=== PATIENT | male | born 2000 | race Asian ===

== ENCOUNTER 2024-12-16 03:07 | Observation (INO) ==
[2024-12-16] MEDS: SODIUM CHLORIDE 0.9% 1,000 ML IV ONE ×2 (03:37→04:52)
[2024-12-16] MEDS: diphenhydrAMINE 50 MG/ML VIAL IV STA (03:39)
[2024-12-16] MEDS: FAMOTIDINE 20MG IV PUSH 20 MG/5 ML SYR IV STA (03:40)
[2024-12-16] MEDS: dexAMETHasone**PF** 10 MG/ML VIAL IV ONE (03:43)
[2024-12-16] MEDS: ONDANSETRON INJ 2 MG/ML 2 ML VIAL IV STA (03:44)
[2024-12-16 04:08] LABS: Hematocrit (blood only) 57.1 % (42.0-52.0); Hemoglobin 19.4 g/dl (14.0-18.0); Mean Corpuscular Hemoglobin 30.5 pg (25.0-34.0); Mean Corpuscular Volume 89.8 fL (80.0-100.0); Platelet Count 342 K/uL (130-400); RDW Standard Deviation 41.8 fL (36.4-46.3); Red Blood Count 6.36 M/uL (4.70-6.10); White Blood Count 22.71 K/ul (4.8-10.8)
[2024-12-16 04:23] LABS: Alanine Aminotransferase 32.0 U/L (7-52); Albumin Globulin Ratio 1.7 (0.9-2); Alkaline Phosphatase 49.0 U/L (34-104); Anion Gap 21.0 (3-11); Bilirubin,Total 0.4 mg/dl (0.2-1.0); Blood Urea Nitrogen 16.0 mg/dl (6-23); Calcium 9.0 mg/dl (8.6-10.3); Carbon Dioxide 17.0 mmol/L (21-32); Chloride 103.0 mmol/L (98-107); Creatinine Clr Calc Pharmacy 75.6 ml/min; Globulin 2.7 gm/dl (2.5-4.0); Glucose 228.0 mg/dl (70-99(Fasting)); Potassium 4.0 mmol/L (3.5-5.1); Sodium 141.0 mmol/L (136-145); Total Protein 7.3 gm/dl (6.0-8.3)
[2024-12-16 04:31] LABS: Immature Granulocytes # (auto) 0.22 K/uL (0.01-0.20); Immature Granulocytes % (auto) 1.0 %; RBC Morphology Unremarkable
[2024-12-16 04:36] LABS: Base Excess VBG -6.0 mEq/L; HCO3 VBG 21 mmol/L; Oxygen Saturation VBG < 60.0 %; PCO2 VBG 44 mmHg (38-50); PO2 VBG 25 mmHg; pH VBG 7.28 (7.36-7.41)
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
[2024-12-16 05:06] LABS: Creatine Kinase 151.0 U/L (30-223)
[2024-12-16 05:31] LABS: Appearance Urine Clear (Clear); Bacteria Urine Automated None Seen (None Seen); Epithelial Cell Urine Auto 0-2 /hpf (0-2); Glucose Urine UA Negative (Negative); RBC Urine Automated 0-2 /hpf (0-2); WBC Urine Automated 0-5 /hpf (0-5)
[2024-12-16 05:34] LABS: Amphetamines+Metham, Urine Neg (Neg); MDMA (Ecstacy), Urine Neg (Neg); Marijuana, Urine Neg (Neg)
[2024-12-16 05:41] LABS: Influenza A virus by PCR Negative (Neg); Influenza B virus by PCR Negative (Neg); SARS CoV2 RNA(COVID-19) Ceph NEGATIVE (Negative)
--- NOTE | 2024-12-16 05:43 | XRay Report ---
EXAM: XR chest 1V portable CLINICAL HISTORY: Altered Mental Status, elevated WBC. TECHNIQUE: An X-ray image of the chest is obtained in AP projection. COMPARISON: No prior studies are available for comparison. FINDINGS: Pulmonary Parenchyma: Lungs are clear bilaterally. No evidence of consolidation, collapse, or focal opacities. No pulmonary nodules are identified. No evidence of pleural effusion or pleural thickening. Heart and Mediastinum: Heart size and shape are normal. No mediastinal widening or masses. No hilar or mediastinal lymphadenopathy. Bony Thorax: Bony thorax appears intact without fractures or deformities. Soft Tissues: Soft tissues overlying the chest wall are unremarkable. IMPRESSION: No acute cardiopulmonary abnormalities are identified. Electronically signed by Armando Brambila 12-16-2024 05:43 AM
[2024-12-16] MEDS: LACTATED RINGER'S 1,000 ML IV SCH (06:29)
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
[2024-12-16] MEDS ORDERED: MELATONIN 3 MG TAB PO PRN (08:13)
[2024-12-16] MEDS ORDERED: diphenhydrAMINE 50 MG/ML VIAL IV PRN (08:13)
[2024-12-16] MEDS ORDERED: ONDANSETRON INJ 2 MG/ML 2 ML VIAL IV PRN (08:13)
[2024-12-16] MEDS ORDERED: ACETAMINOPHEN 325 MG TAB PO PRN (08:13)
[2024-12-16] MEDS ORDERED: POLYETHYLENE (MIRALAX) 17 GM PACK PO PRN (08:13)
[2024-12-16] MEDS ORDERED: ALUMINUM/MAGNESIUM SUSP 30 ML UDC PO PRN (08:13)
[2024-12-16 09:29] LABS: Hemoglobin A1C 5.3 % (4.5-5.6)
--- NOTE | 2024-12-16 13:44 | Hospitalist Progress Note ---
Date of Service December 16, 2024 Assessment & Plan (1) Renal insufficiency: Plan: Mild on admission. Continue IV fluids. Monitor urine output. Serial labs (2) Vomiting: Plan: Probably due to excessive alcohol intake. Now resolved. Symptomatic care (3) Allergic reaction: Plan: The patient thought he was having some type of allergic reaction on admission and received Benadryl. He is currently asymptomatic. Will observe (4) Alcohol intoxication: Plan: Alcohol level elevated on admission. Supportive care. Plan Hopeful discharge to home tomorrow, December 17 Admission and Anticipated Discharge Date Admission Date: December 16, 2024 Subjective Alert and oriented. Family is at the bedside. He states he feels much better than on admission. Alcohol level was elevated at the time of admission. Continue IV fluids for now. Hopefully he can be discharged tomorrow, December 17 Review of Systems 2 Review of Systems: Constitutionalno fever or chills ENTno blurred vision, no double vision, no epistaxis, no sore throat Respiratoryno cough, no wheezing, no shortness of breath Cardiacno palpitations, no chest pain, no syncope Kevin nausea, vomiting, diarrhea, melena, hematochezia GUno urinary retention, no urinary incontinence, no dysuria, no hematuria Musculoskeletalno joint pain, no muscle tenderness Skinno bruising, no rashes, no pruritus Neurono isolated weakness, no paresthesia, no weakness Psychno depression, no anxiety Physical Exam 2 Physical Exam: General-alert and oriented x3, no fever, no chills HEENT-head atraumatic and normocephalic, pupils equal and reactive to light, extraocular muscles intact Neck-no lymphadenopathy or thyromegaly, trachea midline Chest-clear to auscultation. No rales, wheezing or rhonchi Cardiac-regular rate and rhythm, normal S1 and S2 Abdomen-normal bowel sounds, no hepatosplenomegaly Extremities-no cyanosis, clubbing, or edema Neuro-cranial nerves II through XII intact, motor and sensory function within normal limits, strength symmetrical, no focal deficits Psych-normal affect, normal mood general-alert and oriented x3, no fever, no chills Results & Data Results & Data Vital Signs (Past 12 Hours) Vital Signs Temp Pulse Pulse Resp BP BP Pulse Ox 12/16/24 10:50 36.9 C 74 18 112/68 96 12/16/24 09:30 12/16/24 09:22 36.7 C 80 18 115/68 97 12/16/24 09:21 36.7 C 80 18 115/68 97 12/16/24 09:05 68 23 101/52 L 96 12/16/24 09:00 77 12/16/24 07:18 74 20 126/65 95 12/16/24 05:34 70 20 108/55 L 98 12/16/24 03:54 78 17 113/65 98 12/16/24 03:27 84 12/16/24 03:16 36.6 C 100 H 18 128/85 96 Pulse Ox O2 Del Method O2 Del Method 12/16/24 10:50 Room Air 12/16/24 09:30 97 Room Air 12/16/24 09:22 Room Air 12/16/24 09:21 Room Air 12/16/24 09:05 Room Air 12/16/24 09:00 12/16/24 07:18 Room Air 12/16/24 05:34 Room Air 12/16/24 03:54 Room Air 12/16/24 03:27 12/16/24 03:16 Room Air Laboratory Results 12/16/24 03:32 12/16/24 03:32 PG Care Time/CCT Total # of Minutes Spent Total Time Spent with Patient: Total time spent is greater than 50% in coordination of care (as documented) at patient's floor/unit and/or counseling patient: Coding Level of Care Code 41987 SUB INP/OBS CARE 3/50MIN Diagnoses Renal insufficiency N28.9 Vomiting R11.10 Allergic reaction T78.40XA Alcohol intoxication F10.929
[2024-12-16 15:04] LABS: Base Excess VBG -0.5 mEq/L; HCO3 VBG 23 mmol/L; Oxygen Saturation VBG 85.5 %; PCO2 VBG 35 mmHg (38-50); PO2 VBG 49 mmHg; pH VBG 7.43 (7.36-7.41)
[2024-12-16 15:23] LABS: Anion Gap 8.0 (3-11); Blood Urea Nitrogen 14.0 mg/dl (6-23); Calcium 9.1 mg/dl (8.6-10.3); Carbon Dioxide 24.0 mmol/L (21-32); Chloride 107.0 mmol/L (98-107); Creatinine Clr Calc Pharmacy 119.1 ml/min; Glucose 137.0 mg/dl (70-99(Fasting)); Potassium 4.0 mmol/L (3.5-5.1); Sodium 139.0 mmol/L (136-145)
[2024-12-16 15:38] LABS: Thyroid Stimulating Hormone 1.786 uIu/ml (0.300-4.500)
[2024-12-16 16:04] LABS: Hematocrit (blood only) 44.4 % (42.0-52.0); Hemoglobin 15.0 g/dl (14.0-18.0); Mean Corpuscular Hemoglobin 30.6 pg (25.0-34.0); Mean Corpuscular Volume 90.6 fL (80.0-100.0); Platelet Count 205 K/uL (130-400); RDW Standard Deviation 43.1 fL (36.4-46.3); Red Blood Count 4.90 M/uL (4.70-6.10); White Blood Count 8.74 K/ul (4.8-10.8)
[2024-12-17 07:39] LABS: Hematocrit (blood only) 40.0 % (42.0-52.0); Hemoglobin 13.5 g/dl (14.0-18.0); Immature Granulocytes # (auto) 0.04 K/uL (0.01-0.20); Immature Granulocytes % (auto) 0.4 %; Mean Corpuscular Hemoglobin 30.7 pg (25.0-34.0); Mean Corpuscular Volume 90.9 fL (80.0-100.0); Platelet Count 214 K/uL (130-400); RDW Standard Deviation 44.3 fL (36.4-46.3); Red Blood Count 4.40 M/uL (4.70-6.10); White Blood Count 10.65 K/ul (4.8-10.8)
[2024-12-17 07:57] LABS: Anion Gap 6.0 (3-11); Blood Urea Nitrogen 10.0 mg/dl (6-23); Calcium 8.9 mg/dl (8.6-10.3); Carbon Dioxide 27.0 mmol/L (21-32); Chloride 108.0 mmol/L (98-107); Creatinine Clr Calc Pharmacy 148.1 ml/min; Glucose 111.0 mg/dl (70-99(Fasting)); Potassium 4.0 mmol/L (3.5-5.1); Sodium 141.0 mmol/L (136-145)
[2024-12-17 08:09] VITALS: RESP 18; TEMP 98.4
[2024-12-17 11:31] VITALS: BP 135/65; PULSE 51; O2SAT 96
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
== END 2024-12-17 12:46 | disposition home or self-care (01) | DRG 897 ==
LOC: SUATTDRO → ED 03:07 → INTOOBSV 05:59 → EDINP 05:59 → 2S 08:13